=== PATIENT | female | born 2000 | race Caucasian/White ===

== ENCOUNTER 2025-09-13 00:03 | Inpatient (IN) | payer BC ==
[~2025-09-13] VITALS: Ht 162.6 cm; Wt 122.5 kg
[2025-09-13] MEDS ORDERED: LACTATED RINGER'S 1,000 ML IV PRN (00:15)
[2025-09-13] MEDS ORDERED: LIDOCAINE HCL 1% 30 ML SDV INJ PRN (00:15)
[2025-09-13] MEDS ORDERED: MAGNESIUM HYDROXIDE/AL HYDROX 30 ML CUP PO PRN (00:15)
[2025-09-13] MEDS ORDERED: TERBUTALINE SULFATE 1 MG/ML AMP SUB-Q PRN (00:15)
[2025-09-13] MEDS ORDERED: CALCIUM CARBONATE 500 MG CHEW PO PRN (00:15)
[2025-09-13] MEDS ORDERED: OXYTOCIN/0.9 % SODIUM CHLORIDE 30 UNITS/500 ML BAG IV SCH (00:30)
[2025-09-13 00:49] LABS: MCH 29.8 PG (25.6-32.2); MCHC 33.3 g/dL (32.2-35.5); MCV 89.4 fL (79.4-94.8); RBC 4.06 M/uL (3.93-5.22)
[2025-09-13 01:24] LABS: ABO A; ANTIBODY SCREEN NEGATIVE; RH POSITIVE
[2025-09-13 01:54] LABS: AMPHETAMINES, URINE NEGATIVE (NEGATIVE); BARBITURATES, URINE NEGATIVE (NEGATIVE); BENZODIAZEPINE, URINE NEGATIVE (NEGATIVE); CANNABINOID, URINE NEGATIVE (NEGATIVE); COCAINE, URINE NEGATIVE (NEGATIVE); ECSTASY, URINE NEGATIVE (NEGATIVE); FENTANYL, URINE NEGATIVE (NEGATIVE); METHADONE, URINE NEGATIVE (NEGATIVE); OPIATES, URINE NEGATIVE (NEGATIVE); OXYCODONE, URINE NEGATIVE (NEGATIVE); PHENCYCLIDINE, URINE NEGATIVE (NEGATIVE)
[2025-09-13 03:16] VITALS: BP 124/62
[2025-09-13] MEDS ORDERED: LEVOTHYROXINE SODIUM 100 MCG TAB PO SCH (11:18)
[2025-09-14] MEDS ORDERED: ePHEDrine sulfate 5 MG/ML SYRINGE IV PRN (04:30)
[2025-09-14] MEDS ORDERED: LACTATED RINGER'S 2,000 ML IV ONE (04:30)
[2025-09-14] MEDS ORDERED: ROPIVACAINE 0.2% 200 ML BAG EPIDURAL SCH ×2 (04:30)
[2025-09-14] MEDS ORDERED: LACTATED RINGER'S 500 ML IV PRN (04:30)
[2025-09-14] MEDS ORDERED: OXYTOCIN/0.9 % SODIUM CHLORIDE 500 ML IV SCH (07:45)
[2025-09-14] MEDS ORDERED: SODIUM CHLORIDE 0.9% 20 ML IV ONE (14:24)
[2025-09-14] MEDS ORDERED: Ropivacaine HCl 0.5% 30 ML VIAL ONE ×2 (14:24→21:38)
[2025-09-14] MEDS ORDERED: fentaNYL citrate 100 MCG/2 ML VIAL ONE ×2 (14:25→21:38)
[2025-09-14 18:00] LABS: IS CROSSMATCH COMPATIBLE
[2025-09-14 18:13] LABS: ABO A; RH POSITIVE
[2025-09-14] MEDS ORDERED: LIDOCAINE HCL 2% 5 ML SDV ONE (21:38)
[2025-09-15 00:58] LABS: BASOPHILS 0.4 % (0.1-1.2); EOSINOPHILS 0.4 % (0.7-5.8); LYMPHOCYTES 12.6 % (19.3-51.7); MCH 30.0 PG (25.6-32.2); MCHC 33.3 g/dL (32.2-35.5); MCV 90.0 fL (79.4-94.8); MONOCYTES 8.0 % (4.7-12.5); NEUTROPHILS 78.1 % (34.0-71.1); RBC 3.90 M/uL (3.93-5.22)
[2025-09-15] MEDS ORDERED: CEFAZOLIN SODIUM 3 GM in SODIUM CHLORIDE 0.9% 100 ML IV SCH (01:08)
[2025-09-15] MEDS ORDERED: AZITHROMYCIN 500 MG in DEXTROSE 5% 250 ML IV ONE (01:15)
[2025-09-15] MEDS ORDERED: TRANEXAMIC ACID IN NACL,ISO-OS 0 ML IV ONE (01:26)
[2025-09-15] MEDS ORDERED: BUPIVACAINE 0.75% IN DEXTROSE 2 ML AMP ONE (01:27)
[2025-09-15] MEDS ORDERED: LIDOCAINE HCL 2% 5 ML SDV ONE (01:27)
[2025-09-15] MEDS ORDERED: fentaNYL citrate 100 MCG/2 ML VIAL ONE (01:28)
[2025-09-15] MEDS ORDERED: MORPHINE SULFATE 1 MG/ML VIAL ONE (01:28)
[2025-09-15] MEDS ORDERED: OXYTOCIN 10 UNITS/ML VIAL ONE (01:33)
[2025-09-15 01:36] LABS: ABO A; ANTIBODY SCREEN NEGATIVE; IS CROSSMATCH COMPATIBLE; RH POSITIVE
[2025-09-15] MEDS ORDERED: PHENYLEPHRINE HCL IN 0.9% NACL 1 MG/10 ML SYR ONE (02:00)
[2025-09-15] MEDS ORDERED: SODIUM CHLORIDE 0.9% 40 ML IV ONE (02:33)
[2025-09-15] MEDS ORDERED: DEXAMETHASONE SOD PHOS 4 MG/ML VIAL ONE (02:33)
[2025-09-15] MEDS ORDERED: Ropivacaine HCl 0.5% 30 ML VIAL ONE (02:33)
[2025-09-15] MEDS ORDERED: KETOROLAC TROMETHAMINE 30 MG/ML VIAL IV PRN ×2 (03:00)
[2025-09-15] MEDS ORDERED: HYDROmorphone HCL 1 MG/ML SYR IV PRN (03:00)
[2025-09-15] MEDS ORDERED: IBLOOD GLUCOSE TEST STRIP 1 EA TEST VI PRN (03:00)
[2025-09-15] MEDS ORDERED: NALOXONE HCL 0.4 MG SYR IV PRN ×2 (03:00)
[2025-09-15] MEDS ORDERED: LACTATED RINGER'S 1,000 ML IV SCH (03:10)
[2025-09-15] MEDS ORDERED: OXYCODONE HCL 5 MG TAB PO PRN (03:15)
[2025-09-15] MEDS ORDERED: OXYTOCIN/0.9 % SODIUM CHLORIDE 500 ML IV SCH (03:15)
[2025-09-15] MEDS ORDERED: PROMETHAZINE HCL 25 MG TAB PO PRN (03:15)
[2025-09-15] MEDS ORDERED: LIDOCAINE 2% VISCOUS 6 ML SYR TOP ONE (03:15)
[2025-09-15] MEDS ORDERED: PROMETHAZINE HCL 25 MG SUPP PR PRN (03:15)
[2025-09-15] MEDS ORDERED: METOCLOPRAMIDE HCL 10 MG/2 ML SDV IV PRN (03:15)
[2025-09-15] MEDS ORDERED: OXYCODONE/APAP 5/325 TAB PO PRN (03:15)
[2025-09-15] MEDS ORDERED: HYDROCODONE/ACETA 5/325 TAB PO PRN (03:15)
[2025-09-15] MEDS ORDERED: PROCHLORPERAZINE EDISYLATE 10 MG/2 ML VIAL IV PRN (03:15)
[2025-09-15 03:54] VITALS: BP 106/56
--- NOTE | 2025-09-15 04:03 | NUR ---
09/15/25 0403 Armida Herrera 0304- FUNDAL MASSAGE DONE ONCE IN OR. SEE CHARTING. 0308-PT IS TRANSFERED TO ROOM 105. PT BREATHING IS EVEN AND UNLABORED. PT DENIES PAIN AND NAUSEA. MONITORS PUT IN PLACE. VSS. 0310- BABY AT BREAST. 0328- PT IS ABLE TO ADJUST LEGS FOR FUNDAL CHECK. PT REPORTS BEING ABLE TO FEEL THE CATHETER AND FEELS WHEN RN TOUCHES HER FEET. 0340- BEDSIDE REPORT GIVEN TO [facility] RN. ALL QUESTIONS AND CONCERNS ANSWERED. BED IS LOCKED IN THE LOWEST POSTION AND PLUGGED IN. CALL LIGHT IN REACH. FUNDAL MASSAGE DONE TOGETHER. WHITE CATHETER IS DRAINING CLEAR YELLOW URINE. IV IN THE L AC IN INFUSING. PT DENIES PAIN AND NAUSEA. PT SHOWS SHE IS ABLE TO LIFT LEGS OFF OF THE BED AND BEND HER KNEES AND MOVE HER TOES. CARE TURNED OVER AT THIS TIME.
[2025-09-15] MEDS ORDERED: SIMETHICONE 80 MG CHEW PO SCH (07:00)
[2025-09-15] MEDS ORDERED: KETOROLAC TROMETHAMINE 30 MG/ML VIAL IV SCH (08:00)
[2025-09-15] MEDS ORDERED: SENNOSIDES/DOCUSATE 1 EA TAB PO SCH (09:00)
[2025-09-15] MEDS ORDERED: ACETAMINOPHEN 325 MG TAB PO PRN (18:15)
[2025-09-16 05:16] LABS: MCH 29.9 PG (25.6-32.2); MCHC 33.0 g/dL (32.2-35.5); MCV 90.7 fL (79.4-94.8); RBC 3.24 M/uL (3.93-5.22)
[2025-09-16] MEDS ORDERED: IBUPROFEN 600 MG TAB PO SCH (08:00)
== END 2025-09-16 12:45 | disposition home or self-care (01) | DRG 788 ==
LOC: FBC 00:03 → MS 09-15 14:20 → FBC 09-15 14:42
PROVIDERS: Advanced Practice Midwife; Obstetrics & Gynecology; ADMIT Obstetrics & Gynecology; ATTEND Obstetrics & Gynecology
PROC: 3E03329 Introduction of Other Anti-infective into Peripheral Vein, Percutaneous Approach (ICD-10-PCS; principal; 2025-09-15 01:36)
PROC: 10D00Z1 Extraction of Products of Conception, Low, Open Approach (ICD-10-PCS; principal; 2025-09-15 01:36)
DX: O64.8XX0 Obstructed labor due to other malposition and malpresentation, not applicable or unspecified (principal); O34.211 Maternal care for low transverse scar from previous cesarean delivery; Z3A.41 41 weeks gestation of pregnancy; Z37.0 Single live birth; O99.214 Obesity complicating childbirth; O48.0 Post-term pregnancy; O69.81X0 Labor and delivery complicated by cord around neck, without compression, not applicable or unspecified; O99.334 Smoking (tobacco) complicating childbirth; F17.210 Nicotine dependence, cigarettes, uncomplicated; Z98.890 Other specified postprocedural states; Z79.899 Other long term (current) drug therapy; Z79.82 Long term (current) use of aspirin; O99.284 Endocrine, nutritional and metabolic diseases complicating childbirth; E03.9 Hypothyroidism, unspecified
CPT/HCPCS: 01961; 36415; 80307; 85025; 85027; 86850; 86900; 86901; 86922; A9270; J0165; J0456; J1100; J1885; J2003; J2274; J2405; J2590; J2795; J3010; J7060; J7121